=== PATIENT | female | born 1990 | race Caucasian/White ===

== ENCOUNTER 2016-07-27 18:45 | Emergency (ER) | payer OTHER ==
[2016-08-26] MEDS ORDERED: LITHOBID SR300 MG PO (11:36)
[2016-08-26] MEDS ORDERED: HYDROXYZINE HCL25 M1 PO (11:36)
[2016-08-26] MEDS ORDERED: TRAMADOL HCL50 M2 PO (11:36)
== END 2016-07-27 20:10 | disposition home or self-care (01) ==
LOC: CFTX 18:45 → CED 18:45 → CFTX 19:19
DX: L72.9 Follicular cyst of the skin and subcutaneous tissue, unspecified (principal); F31.9 Bipolar disorder, unspecified; F17.210 Nicotine dependence, cigarettes, uncomplicated; Z91.040 Latex allergy status; Z88.8 Allergy status to other drugs, medicaments and biological substances
CPT/HCPCS: 99282

== ENCOUNTER → 2016-08-19 | Outpatient (CLI) | payer OTHER ==
[~2016-08-19] MED LIST: HYDROXYZINE HCL25 M1 PO; LAMICTAL; LITHOBID SR300 MG PO; TRAMADOL HCL50 M2 PO; ULTRAM
--- NOTE | ~2016-08-19 | EKG ---
PATIENT: KATHY JACOBSON UNIT #: [id number] Ventricular Rate: 78 BPM Atrial Rate: 78 BPM P-R Interval: 156 ms QRS Duration: 88 ms Q-T Interval: 386 ms QTC Calculation(Bezet): 440 ms P [place]: 49 degrees Calculated R [place]: 45 degrees Calculated T [place]: 31 degrees Diagnosis Line: Normal sinus rhythm Diagnosis Line: Normal ECG Diagnosis Line: No previous ECGs available Diagnosis Line: Confirmed by CARLOS CONLEY MD ([id number]) on 08/24/2016 Diagnosis Line: 2:33:43 PM INTERPRETING MD: JARVIS POPE
== END | disposition home or self-care (01) ==
LOC: CAMB 11:13 → EDSTATUS 12:00
DX: Z01.810 Encounter for preprocedural cardiovascular examination (principal); L72.3 Sebaceous cyst
CPT/HCPCS: 93005

== ENCOUNTER → 2016-08-26 | Day surgery (SDC) | payer OTHER ==
--- NOTE | ~2016-08-26 | OR ---
Unit #: [id number] #: [id number] Patient: KATHY JACOBSON [id number] [address] [place], [place] [address] [id number] MR#: [id number] NAME: KATHY JACOBSON ROOM: Date of Procedure: 08/26/2016 Admission Date: 08/26/2016 Surgeon: Peter Delarosa M.D. : 1990 Attending Physician: Peter Delarosa M.D. Primary Care Physician: [facility] OPERATIVE REPORT JOB NOTE: VERIFY CC. PREOPERATIVE DIAGNOSIS Chronically inflamed sebaceous cyst, left chest. POSTOPERATIVE DIAGNOSIS Chronically inflamed sebaceous cyst, left chest. PROCEDURE PERFORMED Excision of chronically inflamed sebaceous cyst, left chest, 2 x 3 cm with layered closure. ANESTHESIA Versed 5 mg, Demerol 50 mg each IV push in divided dosages with continuous cardiac and O2 saturation monitoring, 1% Xylocaine plain local anesthesia. FINDINGS The area was excised and sent to pathology. SPECIMENS Sent to pathology. COMPLICATIONS None apparent. CONDITION The patient tolerated the procedure well. INDICATIONS FOR PROCEDURE The patient is a 26-year-old white female, who has a chronically inflamed sebaceous cyst of the left chest wall that required incision and drainage. She presents at this time for excision for pathologic diagnosis and treatment. DESCRIPTION OF PROCEDURE After obtaining informed consent as well as receiving preoperative antibiotics, the patient was brought to the operating room. After adequate conscious sedation, had the area prepped and draped in sterile fashion, then anesthetized with 1% Xylocaine plain local anesthesia. The area was elliptically excised circumferentially with a knife and then taken down through the subdermal tissues and subcutaneous tissues with electrocautery with good hemostasis. The area was completely excised. Unit #: [id number] #: [id number] Patient: KATHY JACOBSON The wound was irrigated. Hemostasis was obtained with the Bovie. The deep tissues were reapproximated with interrupted 3-0 Vicryl suture and the skin was closed with a running 4-0 Vicryl subcuticular stitch. Mastisol and Steri-Strips were applied over the wound in an occlusive manner followed by dry dressing and a Tegaderm dressing. Needle counts, sponge counts, and instrument counts were all correct as reported by the scrub nurse x2. The patient went from the operative room to recovery room in stable condition. Dictated by... Denise Agosto/roly TD: 08/26/2016 08:43 JOB #: [id number] CC: [facility] OPERATIVE REPORT Page 1 of 1 X Peter Delarosa MD X PROCEDURE OPERATIVE NOTE
== END | disposition home or self-care (01) ==
LOC: CSUR 05:34
DX: L72.3 Sebaceous cyst (principal); L08.9 Local infection of the skin and subcutaneous tissue, unspecified; I34.1 Nonrheumatic mitral (valve) prolapse; R01.1 Cardiac murmur, unspecified
CPT/HCPCS: 84703; 88304; J0690; J2175; J2250

== ENCOUNTER 2016-10-16 09:09 | Emergency (ER) | payer OTHER ==
--- NOTE | ~2016-10-16 | CT71 ---
[facility] RADIOLOGY TEXT RESULTS PATIENT: KATHY JACOBSON LOCATION: SED : 90 UNIT #: [id number] AGE: [address]: Timo Glover MD SEX: F ORDER DR: [id number] [place] [id number] E MR#: [id number] Acc #: [id number] NAME: KATHY JACOBSON : 1990 SEX: F STUDY DATE/TIME: 10/16/2016 10:02 UNIT: SED ROOM: STUDY DESCRIPTION: CT Head Wo Contrast Attending Physician: Timo Glover M.D. Ordering Physician: Timo Glover M.D. Primary Care Physician: [facility] MEDICAL IMAGING REPORT This report is preliminary unless electronic signature is present. EXAM CT head without contrast INDICATION Headache today and light sensitivity. TECHNIQUE CT of the head was performed without contrast. This CT examination was performed with one or more of the following radiation dose reduction techniques: automatic exposure control, adjustment of mA and/or kV according to patient size, and iterative reconstruction. COMPARISON 06/10/2016. FINDINGS There is no intracranial hemorrhage. There is no evidence for acute cortical based infarction, focal mass lesion or hydrocephalus. The included orbits are unremarkable. The visualized paranasal sinuses are unremarkable. The bone windows are unremarkable. IMPRESSION Negative noncontrast head CT. Dictated by... Maynor Moncada M.D. THIS IS AN ELECTRONICALLY VERIFIED REPORT Maynor Moncada M.D. at 10/17/2016 7:34 AM [facility] RADIOLOGY TEXT RESULTS PATIENT: KATHY JACOBSON LOCATION: SED : 90 UNIT #: [id number] AGE: [address]: Timo Glover MD SEX: F ORDER DR: TD: 10/17/2016 06:17 JOB #: [id number] MEDICAL IMAGING REPORT Page 1 of 1
[~2016-10-16 09:09] MED LIST changes: -LAMICTAL; -ULTRAM
[2016-10-16] MEDS ORDERED: LAMICTAL (09:18)
[2016-10-16] MEDS ORDERED: ULTRAM (09:18)
== END 2016-10-16 11:09 | disposition home or self-care (01) ==
LOC: SED 09:09
DX: S05.01XA Injury of conjunctiva and corneal abrasion without foreign body, right eye, initial encounter (principal); G43.809 Other migraine, not intractable, without status migrainosus; F41.9 Anxiety disorder, unspecified; F31.9 Bipolar disorder, unspecified; M51.9 Unspecified thoracic, thoracolumbar and lumbosacral intervertebral disc disorder; F17.210 Nicotine dependence, cigarettes, uncomplicated; Z98.890 Other specified postprocedural states; Z91.040 Latex allergy status; Z91.09 Other allergy status, other than to drugs and biological substances; Z79.899 Other long term (current) drug therapy; X58.XXXA Exposure to other specified factors, initial encounter; Y92.9 Unspecified place or not applicable
CPT/HCPCS: 70450; 99284